=== PATIENT | male | born 1955 | race Two or more races ===

== ENCOUNTER → 2017-03-11 | Outpatient (CLI) | payer OTHER ==
[2017-03-11 10:19] LABS: ANION GAP 11 (5-19); BLOOD UREA NITROGEN 19 mg/dL (7-20); CALCIUM 9.7 mg/dL (8.4-10.2); CARBON DIOXIDE 25 mmol/L (22-30); CHLORIDE 105 mmol/L (98-107); GLUCOSE 96 mg/dL (75-110); POTASSIUM 4.4 mmol/L (3.6-5.0); SODIUM 141.4 mmol/L (137-145)
[2017-03-11 10:26] LABS: URINE CREATININE 76.8 mg/dL (22-328)
[2017-03-11 10:31] LABS: CREATININE 1.1 mg/dL (0.52-1.25)
[2017-03-11 10:53] LABS: URINE PROTEIN 9.4 mg/dL (<12)
== END ==
LOC: OD 08:50
PROVIDERS: ATTEND Internal Medicine Nephrology
DX: R94.4 Abnormal results of kidney function studies (principal); I10 Essential (primary) hypertension
CPT/HCPCS: 36415; 80048; 82575; 84156